=== PATIENT | male | born 1980 | race Caucasian/White ===

== ENCOUNTER 2020-10-24 19:38 | Inpatient (IN) | payer MEDICAID, SELFPAY ==
[~2020-10-24] VITALS: Ht 165.1 cm; Wt 106.6 kg
[2020-10-24 19:41] VITALS: BP_SYST 15
--- NOTE | 2020-10-24 19:49 | NUR ---
ER Dr. Patrick at bedside examining patient.
[2020-10-24] MEDS ORDERED: MORPHINE 4 MG INJ. 4 MG/ML VIAL IVP ONE (19:54)
[2020-10-24] MEDS ORDERED: NITROGLYCERIN 1 INCH (GM) OINT. TP ONE (19:54)
--- NOTE | 2020-10-24 21:00 | NUR ---
Placed in room 02 . Placed on engine monitor, blood pressure machine and pulse oximeter. To gown for exam. Side rails up. Report given to ROBI Zuniga
[2020-10-24 21:02] LABS: BASOPHILS % (AUTO) 0.5 % (0.0-2.0); CALCIUM 9.2 mg/dL (8.4-11.0); CREATININE 0.96 mg/dL (0.55-1.30); EOSINOPHILS # (AUTO) 0.1 K/uL (0.0-0.4); EOSINOPHILS % (AUTO) 1.6 % (0.0-4.0); HEMATOCRIT 49.8 % (36-54); HEMOGLOBIN 17.7 g/dL (14.0-18.0); LYMPHOCYTES # (AUTO) 2.5 K/uL (1.0-5.5); LYMPHOCYTES % (AUTO) 27.1 % (20.5-51.5); MEAN CORPUSCULAR HEMOGLOBIN 30 pg (27-31); MEAN CORPUSCULAR HGB CONC 36 % (32-36); MEAN CORPUSCULAR VOLUME 83 fL (79.0-98.0); MONOCYTES # (AUTO) 0.8 K/uL (0.0-1.0); MONOCYTES % (AUTO) 8.9 % (1.7-9.3); NEUTROPHILS # (AUTO) 5.8 K/uL (1.8-7.7); NEUTROPHILS % (AUTO) 61.9 % (40.0-70.0); PLATELET COUNT (AUTO) 163 K/uL (130-430); POTASSIUM 4.1 mmol/L (3.5-5.1); RED BLOOD CELL COUNT(AUTO) 5.98 MIL/uL (4.2-6.2); RED CELL DISTRIBUTION WIDTH 14.5 % (9.0-15.0); WHITE BLOOD COUNT (AUTO) 9.4 K/uL (4.8-10.8)
[2020-10-24 21:08] LABS: ALBUMIN 3.9 g/dL (3.4-4.8)
--- NOTE | 2020-10-24 21:10 | NUR ---
pt arrived to ER with complaints of chest pain, radiating to right side. pt states its been going on for 3 days and its a constant 6/10 pain.he states he has been waking up at night due to the pain. has a hx of heart murmors. first time patient has experienced this kind of pain. he notes he has been smoking more cigarettes than usual as well.
--- NOTE | 2020-10-24 22:10 | NUR ---
Greg soto in ED - 10/25/20 at 0612 by LIAM pts daughter at beside
[2020-10-24] MEDS ORDERED: ASPI-1155 PO (22:37)
--- NOTE | 2020-10-24 22:38 | NUR ---
Pt is full code
--- NOTE | 2020-10-24 22:40 | NUR ---
Patient will be admitted to care of DR. MICHELLE. Admitted to TELEMETRY unit. BED HOLD. Belongings list completed.
--- NOTE | 2020-10-24 22:47 | NUR ---
pt belongings list done
--- NOTE | 2020-10-24 22:47 | NUR ---
pts med list complete
[2020-10-24 23:38] LABS: AMYLASE 44 U/L (0-100); LIPASE 198 U/L (73-393)
--- NOTE | 2020-10-25 | NUR ---
pt know about the admit orders and is aware of his stay.
[2020-10-25 00:23] LABS: BILIRUBIN,URINE NEGATIVE (NEGATIVE); BLOOD, URINE NEGATIVE (NEGATIVE); COLOR,URINE YELLOW (YELLOW); GLUCOSE,URINE NEGATIVE (NEGATIVE); KETONES,URINE TRACE (NEGATIVE); LEUKOCYTE ESTERASE ,URINE NEGATIVE (NEGATIVE); NITRITE, URINE NEGATIVE (NEGATIVE); PROTEIN URINE NEGATIVE (NEGATIVE); UROBILINOGEN,URINE 0.2 (0.2-1.0)
[2020-10-25 00:29] LABS: CLARITY/URINE SLIGHTLY CLOUDY (CLEAR)
[2020-10-25 00:36] LABS: BARBITURATE, URINE NEGATIVE (NEG <=200); BENZODIAZEPINE, URINE NEGATIVE (NEG <=150); CANNABINOID, URINE NEGATIVE (NEG <=50); COCAINE, URINE NEGATIVE (NEG <=150); METHAMPHETAMINES SCREEN,URINE NEGATIVE (NEG <=500); PHENCYCLIDINE SCREEN,URINE NEGATIVE (NEG <=25); UR TRICYCLIC ANTIDEPRESSANTS NEGATIVE (NEG <=300); URINE AMPHETAMINE NEGATIVE (NEG <=500); URINE METHADONE NEGATIVE (NEG <=200); URINE OXYCODONE SCREEN NEGATIVE (NEG <=100); URINE PROPOXYPHENE SCREEN NEGATIVE (NEG <=300)
[2020-10-25 00:37] LABS: OPIATE, URINE POSITIVE (NEG <=100)
--- NOTE | 2020-10-25 04:01 | NUR ---
Patient resting quietly. No acute distress noted. Vital signs within normal range.
[2020-10-25 05:42] LABS: CHOLESTEROL 169 mg/dL (<200); HDL CHOLESTEROL 43 mg/dL (>45); TRIGLYCERIDES 188 mg/dL (30-150)
[2020-10-25 05:43] LABS: LDL CHOLESTEROL 110 mg/dL (<100)
--- NOTE | 2020-10-25 06:12 | NUR ---
PT IS ASLEEP IN [facility]. VSS, PT BEING MONITORED
--- NOTE | 2020-10-25 07:01 | NUR ---
PT ENDORSED TO [facility]
--- NOTE | 2020-10-25 07:14 | NUR ---
calm, alert, resp unlabored, skin warm and dry. communicates clearly in full complete senteces, denies cp/sob. Tolerating po well.
[2020-10-25] MEDS ORDERED: LISINOPRIL 10 MG TABLET (PRINIVIL) PO SCH (09:00)
--- NOTE | 2020-10-25 09:01 | NUR ---
SITTING UP EATING BREAKFAST, NO DISTRESS
--- NOTE | 2020-10-25 09:32 | NUR ---
UP TALKING WITH FAMILY, DENIES CP/SOB. SR ON MONITOR
--- NOTE | 2020-10-25 09:48 | NUR ---
DR GALLAGHER IN TO ASSESS,
--- NOTE | 2020-10-25 09:51 | NUR ---
Patient will be admitted to care of [facility]. Admitted to TELE unit. Will go to room 112. Belongings list completed. Complete and up to date summary report printed. SBAR report to be given at bedside with opportunity for questions.
--- NOTE | 2020-10-25 10:05 | NUR ---
ADMIT NOTE Received pt from ER to the floor with a diagnosis of Atypical Angina. Admission process initiated. Patient oriented to safety and call light-teach back done.
[2020-10-25 11:35] VITALS: BP_SYST 130
[2020-10-25 12:01] VITALS: BP_SYST 132
[2020-10-25] MEDS ORDERED: SIMV-46 PO (15:29)
[2020-10-25] MEDS ORDERED: LISI10TA29 PO (15:29)
[2020-10-25 16:00] VITALS: BP_SYST 116
[2020-10-25 18:38] VITALS: BP_SYST 118
--- NOTE | 2020-10-25 19:20 | NUR ---
D/C Patient Patient discharge home.Patient given medication reconciliation form and D/C instructions. Exit Care provided. Patient verbalized understanding. MD discussed with patient the results and treatment provided. Ambulatory with steady gait for discharge to home. Patient in stable condition, ID band removed. IV catheter removed, intact and dressing applied, no active bleeding. E script c/o [facility], preferred pharmacy. All belongings sent with patient.
[2020-10-25] MEDS ORDERED: SIMVASTATIN 40 MG TABLET PO SCH (21:00)
== END 2020-10-25 19:30 | disposition home or self-care (01) | DRG 203 ==
LOC: SED 19:38 → STU 22:47
PROVIDERS: ADMIT Family Medicine; ATTEND Family Medicine
DX: R07.89 Other chest pain (principal); I47.1 Supraventricular tachycardia; E66.9 Obesity, unspecified; Z20.822 Contact with and (suspected) exposure to COVID-19; F12.90 Cannabis use, unspecified, uncomplicated; F15.90 Other stimulant use, unspecified, uncomplicated; Z79.82 Long term (current) use of aspirin; Z79.899 Other long term (current) drug therapy; Z87.891 Personal history of nicotine dependence
CPT/HCPCS: 36415; 71045; 80053; 80061; 80307; 81003; 82150; 83036; 83690; 83880; 84484; 85025; 85379; 93005; 93306; 96374; 99291; G0378; J2270

== ENCOUNTER 2022-10-13 10:31 | Inpatient (IN) | payer MEDICAID ==
[~2022-10-13] VITALS: Ht 165.1 cm; Wt 107.1 kg
[~2022-10-13 10:31] MED LIST: ASPI-1155 PO; LISI10TA29 PO; SIMV-46 PO
[2022-10-13 10:36] VITALS: BP_SYST 143; PULSE 122; RESP 22; TEMP 99; O2SAT 92
[2022-10-13 11:17] LABS: BASOPHILS % (AUTO) 0.4 % (0.0-2.0); EOSINOPHILS # (AUTO) 0.1 K/uL (0.0-0.4); EOSINOPHILS % (AUTO) 1.7 % (0.0-4.0); HEMATOCRIT 54.3 % (36-54); HEMOGLOBIN 18.7 g/dL (14.0-18.0); LYMPHOCYTES # (AUTO) 1.8 K/uL (1.0-5.5); LYMPHOCYTES % (AUTO) 23.5 % (20.5-51.5); MEAN CORPUSCULAR HEMOGLOBIN 28 pg (27-31); MEAN CORPUSCULAR HGB CONC 35 % (32-36); MEAN CORPUSCULAR VOLUME 82 fL (79.0-98.0); MONOCYTES # (AUTO) 0.7 K/uL (0.0-1.0); MONOCYTES % (AUTO) 8.8 % (1.7-9.3); NEUTROPHILS % (AUTO) 65.6 % (40.0-70.0); PLATELET COUNT (AUTO) 189 K/uL (130-430); RED BLOOD CELL COUNT(AUTO) 6.62 MIL/uL (4.2-6.2); RED CELL DISTRIBUTION WIDTH 14.4 % (9.0-15.0); WHITE BLOOD COUNT (AUTO) 7.6 K/uL (4.8-10.8)
[2022-10-13 11:24] LABS: ANION GAP 5 (5-15); CARBON DIOXIDE 34 mmol/L (23-29); CHLORIDE 100 mmol/L (98-107); CREATININE 0.92 mg/dL (0.55-1.30); GFR AFRICAN AMERICAN 116 mL/min (>90); GLUCOSE 110 mg/dL (74-106); POTASSIUM 4.4 mmol/L (3.5-5.1); SODIUM SERUM 139 mmol/L (136-145); UREA NITROGEN, BLOOD 13 mg/dL (8-21)
[2022-10-13 11:28] LABS: GFR NON AFRICAN-AMERICAN 96 mL/min (>90)
[2022-10-13 11:32] LABS: ALANINE AMINOTRANSFERASE 36 U/L (12-78); ALBUMIN 4.1 g/dL (3.4-4.8); ASPARTATE AMINOTRANSFERASE 26 U/L (10-37); TOTAL BILIRUBIN 1.6 mg/dL (0.0-1.0); TOTAL PROTEIN, SERUM 8.2 g/dL (6.4-8.3)
[2022-10-13] MEDS ORDERED: NACL 0.9% 1,000 ML IV ONE ×2 (12:00)
[2022-10-13] MEDS ORDERED: ASPIRIN 325 MG TABLET PO ONE (13:00)
[2022-10-13 14:10] LABS: BILIRUBIN,URINE NEGATIVE (NEGATIVE); BLOOD, URINE TRACE (NEGATIVE); CLARITY/URINE CLEAR (CLEAR); COLOR,URINE YELLOW (YELLOW); GLUCOSE,URINE NEGATIVE (NEGATIVE); KETONES,URINE NEGATIVE (NEGATIVE); LEUKOCYTE ESTERASE ,URINE NEGATIVE (NEGATIVE); NITRITE, URINE NEGATIVE (NEGATIVE); PH,URINE 5.5 (5.0-8.0); PROTEIN URINE NEGATIVE (NEGATIVE); UROBILINOGEN,URINE 0.2 (0.2-1.0)
[2022-10-13 14:15] LABS: BACTERIA,URINE RARE /HPF (None Seen); MUCUS,URINE 1+ /LPF (None Seen); RBC,URINE 0-3 /HPF (0-3); WBC,URINE 0-3 /HPF (0-3)
[2022-10-13 14:17] LABS: BARBITURATE, URINE NEGATIVE (NEG <=200); METHAMPHETAMINES SCREEN,URINE NEGATIVE (NEG <=500); URINE AMPHETAMINE NEGATIVE (NEG <=500)
[2022-10-13 14:18] LABS: BENZODIAZEPINE, URINE NEGATIVE (NEG <=150); CANNABINOID, URINE NEGATIVE (NEG <=50); COCAINE, URINE NEGATIVE (NEG <=150); OPIATE, URINE NEGATIVE (NEG <=100); PHENCYCLIDINE SCREEN,URINE NEGATIVE (NEG <=25); UR TRICYCLIC ANTIDEPRESSANTS NEGATIVE (NEG <=300); URINE METHADONE NEGATIVE (NEG <=200); URINE OXYCODONE SCREEN NEGATIVE (NEG <=100); URINE PROPOXYPHENE SCREEN NEGATIVE (NEG <=300)
[2022-10-13] MEDS ORDERED: NITROGLYCERIN 0.4 MG TAB.SUBL SL PRN (16:15)
[2022-10-13] MEDS ORDERED: METOPROLOL TARTRATE 25 MG TABLET PO ONE (16:15)
[2022-10-13] MEDS: NACL 0.9% 1,000 ML IV SCH (17:30)
[2022-10-13] MEDS ORDERED: SIMVASTATIN 40 MG TABLET PO SCH (21:00)
[2022-10-13 21:10] VITALS: BP_SYST 136; PULSE 94; RESP 18; TEMP 96; O2SAT 96
[2022-10-13 21:44] VITALS: BP_SYST 136; PULSE 94; RESP 18; TEMP 96; O2SAT 94
[2022-10-13] MEDS: METOPROLOL TARTRATE 25 MG TABLET PO SCH (21:54)
[2022-10-13 22:39] LABS: THYROID STIMULATING HORMONE 4.15 uIu/mL (0.34-4.82)
[2022-10-14 02:17] VITALS: BP_SYST 118; PULSE 81; RESP 16; TEMP 98.4; O2SAT 98
[2022-10-14 08:00] VITALS: BP_SYST 135; PULSE 80; RESP 18; TEMP 96.5; O2SAT 96
[2022-10-14 08:01] LABS: CHOLESTEROL 184 mg/dL (<200); HDL CHOLESTEROL 47 mg/dL (>45); TRIGLYCERIDES 163 mg/dL (30-150)
[2022-10-14] MEDS: METOPROLOL TARTRATE 25 MG TABLET PO SCH (08:48)
[2022-10-14] MEDS ORDERED: ASPIRIN 81 MG TAB.CHEW PO SCH (09:00)
[2022-10-14] MEDS: NACL 0.9% 1,000 ML IV SCH ×2 (10:56→11:36)
[2022-10-14] MEDS ORDERED: METO25TA6 PO (10:59)
[2022-10-14 12:00] VITALS: BP_SYST 135; PULSE 78; RESP 18; TEMP 97.6; O2SAT 98
[2022-10-14 14:37] VITALS: BP_SYST 130; PULSE 82; RESP 18; TEMP 97; O2SAT 97
== END 2022-10-14 15:16 | disposition home or self-care (01) | DRG 201 ==
LOC: SED 10:31 → STU 14:14
PROVIDERS: ADMIT General Practice; ATTEND General Practice
DX: I45.6 Pre-excitation syndrome (principal); R65.10 Systemic inflammatory response syndrome (SIRS) of non-infectious origin without acute organ dysfunction; I47.1 Supraventricular tachycardia; F15.10 Other stimulant abuse, uncomplicated; I10 Essential (primary) hypertension; E78.5 Hyperlipidemia, unspecified; E80.6 Other disorders of bilirubin metabolism
CPT/HCPCS: 36415; 71045; 80053; 80061; 80307; 81000; 83735; 83880; 84443; 84484; 85025; 93005; 99285; G0378; J7030